=== PATIENT | male | born 1985 | race African-American/Black ===

== ENCOUNTER 2020-02-14 12:43 | Inpatient (IN) ==
[2020-02-14] MEDS ORDERED: TORADOL 30 MG VIAL IVP ONE ×2 (12:48→15:12)
[2020-02-14] MEDS ORDERED: NS 1000 ML 1,000 ML IV ONE (12:48)
[2020-02-14] MEDS ORDERED: ZOFRAN INJ 4 MG VIAL IVP ONE (12:48)
--- NOTE | 2020-02-14 12:53 | DR.ABDMALE ---
HPI Time seen Time Seen by Provider: 02/14/20 12:44 Complaint Chief Complaint Doctors Comments: He has had nausea, vomiting and epigastric pain x > 1 week. He states that he was seen in the ED at a hospital in [facility] last week and he had a CT Scan done. He was informed of sludge in his GB then, prior to release to f/u with a specialist. More recently, he has vomitted x 3 days and epigastric pain started this a.m. Reviewed Nurses Notes Review: Yes Source History provided by:: Pt. Location Location: Diffuse Severity Severity: Moderate Quality Quality: Burning and Colicky Modifying factors Worsening Factors: Nothing Improving Factors: Antacids Associated signs and symptoms Associated Signs and Symptoms: Nausea and Vomiting PMH PMH Past Medical History: Yes Past Surgical History: No Travel Risk Conronavirus risk: Travel to [facility] or contact with high risk person(s).: No Has patient experienced Coronavirus symptoms: No ROS Review of Systems Constitutional: No Symptoms Reported Eyes: No Symptoms Reported ENTM: No Symptoms Reported Respiratoy: No Symptoms Reported Cardiovascular: No Symptoms Reported Gastrointestinal/Abdominal: Abdominal Pain (epigastric), Nausea and Vomiting Genitourinary: No Symptoms Reported Neurological: No Symptoms Reported Musculoskeletal: No Symptoms Reported Integumentary: No Symptoms Reported Hematologic/Lymphatic: No Symptoms Reported Endocrine: No Symptoms Reported Psychiatric: No Symptoms Reported All Other Systems: Reviewed and Negative PE Vital Signs Vital Signs: Temp Pulse Resp BP Pulse Ox 02/14/20 14:01 143/68 02/14/20 13:44 16 02/14/20 13:14 18 02/14/20 12:43 97.2 F L 98 H 20 137/91 97 General Limitations: No Limitations General Appearance: Alert and In No Apparent Distress Head Head Exam: Normal Inspection, Atraumatic and Normocephalic Eyes Eye exam: Normal Appearance and EOMI ENT ENT Exam: Normal Exam, Normal Oropharynx, Normal External Ear Exam and Mucous Membranes Moist Neck Neck Exam: Normal Inspection, Full ROM and Trachea Midline Chest Chest Inspection: Normal Inspection and Symmetric Chest Wall Rise Respiratory Respiratory Exam: Normal Lung Sounds Bilat Cardiovascular Cardiovascular Exam: Regular Rate, Normal Rhythm, Normal Heart Sounds, +S1 and +S2 Abdominal Exam Abdominal Exam: Normal Inspection, Normal Bowel Sounds, Soft and Tenderness (in epigastrium); negative Distention, Guarding, Rebound, Rigidity, Dimnished Bowel Sounds, Hyperactive Bowel Sounds, Hypoactive Bowel Sounds, Organomegaly, Trauma, Incision, Ascites, Mass, Bruit, Pulsatile Mass and Hernia Abdominal Tenderness: Epigastrium Rectal Rectal Exam: Deferred Back Back Exam: Normal Inspection and Full ROM Extremeties Extremities Exam: Normal Inspection and Full ROM Exam: Male: Deferred Neurologic Neurological Exam: Alert and Oriented X3 Psychiatric Psychiatric Exam: Normal Affect and Normal Mood Skin Skin Exam: Dry and Intact COURSE Reevaluation 1st: Improved Consultation Consultation Comments: I spoke with Dr. WAGNER about presentation and findings. He agrees to have the pt. admitted to Obs. status for him Education/Counseling Education/Counseling: Patient, Education and Counseling Educated On: Treatment, Diagnosis, Prognosis and Needs for Follow Up ROR Labs Reviewed Laboratory Results Reviewed?: Yes Result Diagrams: 02/14/20 13:13 02/14/20 13:13 Laboratory: WBC 10.8 X10^3/uL (3.6-10.0) H 02/14/20 13:13 RBC 5.26 X10^6/uL (4.7-6.0) 02/14/20 13:13 Hgb 15.4 g/dL (13.5-18.0) 02/14/20 13:13 Hct 44.8 % (42.0-54.0) 02/14/20 13:13 MCV 85.2 fL (80.0-100.0) 02/14/20 13:13 MCH 29.3 pg (27.0-34.0) 02/14/20 13:13 MCHC 34.4 g/dL (33.0-35.0) 02/14/20 13:13 RDW 14.2 % (11.6-16.5) 02/14/20 13:13 Plt Count 263 X10^3/uL (150.0-450.0) 02/14/20 13:13 MPV 8.1 fL (7.4-11.0) 02/14/20 13:13 Neut % (Auto) 80.7 % (42.0-75.0) H 02/14/20 13:13 Lymph % (Auto) 12.0 % (21.0-51.0) L 02/14/20 13:13 [place] % (Auto) 5.2 % (0.0-13.0) 02/14/20 13:13 Eos % (Auto) 1.4 % (0.9-2.9) 02/14/20 13:13 Baso % (Auto) 0.7 % (0.2-1.0) 02/14/20 13:13 Neut # (Auto) 8.7 x10^3/uL (2.2-4.8) H 02/14/20 13:13 Lymph # (Auto) 1.3 X10^3/uL (1.3-2.9) 02/14/20 13:13 [place] # (Auto) 0.6 x10^3/uL (0.3-0.8) 02/14/20 13:13 Eos # (Auto) 0.2 x10^3/uL (0.0-0.2) 02/14/20 13:13 Baso # (Auto) 0.1 X10^3/uL (0.0-0.1) 02/14/20 13:13 Absolute Nucleated RBC 0.0 /100WBC 02/14/20 13:13 Sodium 135 mmol/L (136-145) L 02/14/20 13:13 Corrected Sodium 136 mmol/L (136-145) 02/14/20 13:13 Potassium 3.8 mmol/L (3.5-5.1) 02/14/20 13:13 Chloride 100 mmol/L (98-107) 02/14/20 13:13 Carbon Dioxide 28.5 mmol/L (21-32) 02/14/20 13:13 BUN 8 mg/dL (7-18) 02/14/20 13:13 Creatinine 1.06 mg/dL (0.70-1.30) 02/14/20 13:13 Est GFR (MDRD) Af Amer > 60 (>60) 02/14/20 13:13 Est GFR (MDRD) Non-Af > 60 (>60) 02/14/20 13:13 Glucose 124 mg/dL (65-99) H 02/14/20 13:13 Calcium 9.4 mg/dL (8.5-10.1) 02/14/20 13:13 Corrected Calcium TNP 02/14/20 13:13 Total Bilirubin 0.70 mg/dL (0.2-1.0) 02/14/20 13:13 AST 17 Units/L (15-37) 02/14/20 13:13 ALT 38 Units/L (12-78) 02/14/20 13:13 Alkaline Phosphatase 48 Units/L (46-116) 02/14/20 13:13 Total Protein 7.8 g/dL (6.4-8.2) 02/14/20 13:13 Albumin 3.8 g/dL (3.4-5.0) 02/14/20 13:13 Globulin 4.0 g/dL (2.5-4.5) 02/14/20 13:13 Albumin/Globulin Ratio 1.0 Ratio (1.1-2.1) L 02/14/20 13:13 Amylase 99 Units/L (25-115) 02/14/20 13:13 Lipase 60 Units/L (73-393) L 02/14/20 13:13 Opioid Opioid Risk Tool Total: 0 Total Score Risk Category: Low Risk Copyright: Guerrero BARRIOS predicting aberrant behaviors Diagnosis Discharge Problem: Abdominal pain Qualifiers: Abdominal location: epigastric Qualified Code(s): R10.13 - Epigastric pain ADDITIONAL NOTES Additional Notes Additional Notes: A copy of the abd. U/S from [facility]. was faxed over and reviewed. It was read as showing fally infiltration of the liver, GB sludge with no acute cholecystitis.
[2020-02-14 13:02] VITALS: BMI 34.9
[2020-02-14] MEDS ORDERED: ZOFRAN INJ 4 MG VIAL ONE (13:10)
[2020-02-14] MEDS ORDERED: TORADOL 30 MG VIAL ONE (13:10)
[2020-02-14] MEDS ORDERED: NS 1000 ML 1,000 ML ONE (13:10)
[2020-02-14 13:23] LABS: BASOPHILS # (AUTO) 0.1 X10^3/uL (0.0-0.1); BASOPHILS % (AUTO) 0.7 % (0.2-1.0); EOSINOPHILS # (AUTO) 0.2 x10^3/uL (0.0-0.2); EOSINOPHILS % (AUTO) 1.4 % (0.9-2.9); HEMATOCRIT 44.8 % (42.0-54.0); HEMOGLOBIN 15.4 g/dL (13.5-18.0); LYMPHOCYTES # (AUTO) 1.3 X10^3/uL (1.3-2.9); MEAN CORPUSCULAR HEMOGLOBIN 29.3 pg (27.0-34.0); MEAN CORPUSCULAR HGB CONC 34.4 g/dL (33.0-35.0); MEAN CORPUSCULAR VOLUME 85.2 fL (80.0-100.0); MEAN PLATELET VOLUME 8.1 fL (7.4-11.0); MONOCYTES # (AUTO) 0.6 x10^3/uL (0.3-0.8); MONOCYTES % (AUTO) 5.2 % (0.0-13.0); NEUTROPHILS # (AUTO) 8.7 x10^3/uL (2.2-4.8); NEUTROPHILS % (AUTO) 80.7 % (42.0-75.0); PLATELET COUNT 263 X10^3/uL (150.0-450.0); RED BLOOD COUNT 5.26 X10^6/uL (4.7-6.0); RED CELL DISTRIBUTION WIDTH 14.2 % (11.6-16.5); WHITE BLOOD COUNT 10.8 X10^3/uL (3.6-10.0)
[2020-02-14 13:33] LABS: ALANINE AMINOTRANSFERASE 38 Units/L (12-78); ALBUMIN 3.8 g/dL (3.4-5.0); ALKALINE PHOSPHATASE 48 Units/L (46-116); AMYLASE 99 Units/L (25-115); ASPARTATE AMINO TRANSFERASE 17 Units/L (15-37); BLOOD UREA NITROGEN 8 mg/dL (7-18); CALCIUM 9.4 mg/dL (8.5-10.1); CARBON DIOXIDE 28.5 mmol/L (21-32); CHLORIDE 100 mmol/L (98-107); COR NA(FOR HYPERGLY) 136 mmol/L (136-145); CREATININE 1.06 mg/dL (0.70-1.30); LIPASE 60 Units/L (73-393); SODIUM 135 mmol/L (136-145); TOTAL PROTEIN 7.8 g/dL (6.4-8.2); eGFR NON BLACK RACES > 60 (>60)
[2020-02-14] MEDS ORDERED: DILAUDID INJ IVP ONE (13:36)
[2020-02-14] MEDS ORDERED: DILAUDID INJ ONE (13:43)
[2020-02-14] MEDS: D5 1/2 NS 1000 ML 1,000 ML IV SCH ×2 (16:30→23:41)
[2020-02-14] MEDS: DILAUDID INJ IVP PRN ×2 (18:10→22:30)
[2020-02-14] MEDS: ZOFRAN INJ 4 MG VIAL IVP PRN (18:13)
[2020-02-14] MEDS: PROTONIX INJ 40 MG VIAL IVP SCH (21:00)
--- NOTE | 2020-02-14 22:14 | DR.ABDMALE ---
HPI Time seen Time Seen by Provider: 02/14/20 12:44 PCP Primary Care Physician: ROMAIN Complaint Chief Complaint:: PT. C/O EPIGASTRIC PAIN, N/V/D. ONSET TODAY. PT. WAS SEEN AT [facility], LAST WEEK AND PT. STATES THEY TOLD H IM HE HAD A BAD GALLBLADDER. PT. ACTIVELY VOMITING AT TIME OF TRIAGE, UNABLE TO LIE STILL ON STRETCHER. Source History provided by:: Pt. Mode of arrival Mode of Arrival: Wheelchair Timing Onset of Chief Complaint: 02/14/20 PMH PMH Past Medical History: Yes Past Medical History: Hypertension Past Surgical History: No Surgical History: Appendectomy and Tonsillectomy Family History History of Family Medical Conditions: No Social History Does patient currently use any type of tobacco product: Yes Have you used tobacco products in the last 12 months: Yes Type of Tobacco Use: Cigarettes Does any household member use tobacco: No Alcohol Use: Occasionally Do you use any recreational Drugs:: No Travel Risk Conronavirus risk: Travel outside the country or contact with high risk person(s).: No Has patient experienced Coronavirus symptoms: No Infectious screening In the last 2 months have you had wt loss of >10#?: NO Have you had fever, night sweats or hemotysis?: No Have you traveled outside the country in the last 6 months?: No Isolation: Standard PE Vital Signs Vital Signs: Temp Pulse Pulse Resp BP BP BP 02/15/20 08:00 98.6 F 80 18 141/82 02/15/20 07:14 20 02/15/20 06:44 20 02/15/20 04:00 98.4 F 87 18 191/92 02/15/20 03:29 18 02/15/20 02:59 18 02/15/20 00:00 98.1 F 64 18 131/83 02/14/20 23:00 20 02/14/20 22:30 20 02/14/20 20:00 98.5 F 57 L 18 152/77 02/14/20 19:00 20 02/14/20 18:10 20 02/14/20 15:40 98.1 F 88 20 146/89 02/14/20 15:37 146/89 02/14/20 15:30 185/107 02/14/20 15:05 127/81 02/14/20 14:31 127/81 03/18/20 14:01 143/68 02/14/20 13:44 16 02/14/20 13:14 18 02/14/20 12:43 97.2 F L 98 H 20 137/91 Pulse Ox 02/15/20 08:00 95 02/15/20 07:14 02/15/20 06:44 02/15/20 04:00 100 02/15/20 03:29 02/15/20 02:59 02/15/20 00:00 97 02/14/20 23:00 02/14/20 22:30 02/14/20 20:00 97 02/14/20 19:00 02/14/20 18:10 02/14/20 15:40 99 02/14/20 15:37 99 02/14/20 15:30 02/14/20 15:05 02/14/20 14:31 02/14/20 14:01 02/14/20 13:44 02/14/20 13:14 02/14/20 12:43 97 ROR Labs Reviewed Result Diagrams: 02/17/20 04:44 02/17/20 04:44 Laboratory: WBC 10.3 X10^3/uL (3.6-10.0) H 02/15/20 04:27 RBC 5.07 X10^6/uL (4.7-6.0) 02/15/20 04:27 Hgb 14.9 g/dL (13.5-18.0) 02/15/20 04:27 Hct 43.7 % (42.0-54.0) 02/15/20 04:27 MCV 86.1 fL (80.0-100.0) 02/15/20 04:27 MCH 29.3 pg (27.0-34.0) 02/15/20 04:27 MCHC 34.0 g/dL (33.0-35.0) 02/15/20 04:27 RDW 14.2 % (11.6-16.5) 02/15/20 04:27 Plt Count 163 X10^3/uL (150.0-450.0) 02/15/20 04:27 MPV 8.6 fL (7.4-11.0) 02/15/20 04:27 Neut % (Auto) 75.0 % (42.0-75.0) 02/15/20 04:27 Lymph % (Auto) 13.7 % (21.0-51.0) L 02/15/20 04:27 [place] % (Auto) 8.7 % (0.0-13.0) 02/15/20 04:27 Eos % (Auto) 2.0 % (0.9-2.9) 02/15/20 04:27 Baso % (Auto) 0.6 % (0.2-1.0) 02/15/20 04:27 Neut # (Auto) 7.7 x10^3/uL (2.2-4.8) H 02/15/20 04:27 Lymph # (Auto) 1.4 X10^3/uL (1.3-2.9) 02/15/20 04:27 [place] # (Auto) 0.9 x10^3/uL (0.3-0.8) H 02/15/20 04:27 Eos # (Auto) 0.2 x10^3/uL (0.0-0.2) 02/15/20 04:27 Baso # (Auto) 0.1 X10^3/uL (0.0-0.1) 02/15/20 04:27 Absolute Nucleated RBC 0.1 /100WBC 02/15/20 04:27 Sodium 139 mmol/L (136-145) 02/15/20 04:27 Corrected Sodium TNP 02/15/20 04:27 Potassium 4.0 mmol/L (3.5-5.1) 02/15/20 04:27 Chloride 103 mmol/L (98-107) 02/15/20 04:27 Carbon Dioxide 28.3 mmol/L (21-32) 02/15/20 04:27 BUN 10 mg/dL (7-18) 02/15/20 04:27 Creatinine 1.29 mg/dL (0.70-1.30) 02/15/20 04:27 Est GFR (MDRD) Af Amer > 60 (>60) 02/15/20 04:27 Est GFR (MDRD) Non-Af > 60 (>60) 02/15/20 04:27 Glucose 91 mg/dL (65-99) 02/15/20 04:27 Calcium 8.5 mg/dL (8.5-10.1) 02/15/20 04:27 Corrected Calcium 9.2 mg/dL (8.5-10.1) 02/15/20 04:27 Total Bilirubin 0.90 mg/dL (0.2-1.0) 02/15/20 04:27 AST 16 Units/L (15-37) 02/15/20 04:27 ALT 29 Units/L (12-78) 02/15/20 04:27 Alkaline Phosphatase 44 Units/L (46-116) L 02/15/20 04:27 Total Protein 6.8 g/dL (6.4-8.2) 02/15/20 04:27 Albumin 3.1 g/dL (3.4-5.0) L 02/15/20 04:27 Globulin 3.7 g/dL (2.5-4.5) 02/15/20 04:27 Albumin/Globulin Ratio 0.8 Ratio (1.1-2.1) L 02/15/20 04:27 Amylase 99 Units/L (25-115) 02/14/20 13:13 Lipase 60 Units/L (73-393) L 02/14/20 13:13 Urine Opiates Screen Negative (NEG=<300) 02/14/20 17:55 Urine Methadone Screen Negative (NEG=<300) 02/14/20 17:55 Ur Barbiturates Screen Negative (NEG=<200) 02/14/20 17:55 Ur Phencyclidine Scrn Negative (NEG=<25) 02/14/20 17:55 Ur Amphetamines Screen Negative (NEG=<1000) 02/14/20 17:55 U Benzodiazepines Scrn Negative (NEG=<200) 02/14/20 17:55 Urine Cocaine Screen Negative (NEG=<300) 02/14/20 17:55 U Marijuana (THC) Screen Positive (NEG=<50) A 02/14/20 17:55 Opioid Opioid Risk Tool Age (Rodríguez box if 16-45): Yes History of Preadolescent Sexual Abuse: No Total: 1 Total Score Risk Category: Low Risk Copyright: Guerrero BARRIOS predicting aberrant behaviors Diagnosis Discharge Problem: Abdominal pain Qualifiers: Abdominal location: epigastric Qualified Code(s): R10.13 - Epigastric pain Instructions Instructions: Laparoscopic Cholecystectomy, Care After Abdominal Pain, Adult, [id number] Stitches, Vannessa, or Adhesive Wound Closure, [id number] Incision Care, Adult
[2020-02-15] MEDS: ZOFRAN INJ 4 MG VIAL IVP PRN ×4 (00:45→20:15)
[2020-02-15] MEDS: DILAUDID INJ IVP PRN ×4 (02:59→20:15)
[2020-02-15 05:21] LABS: BASOPHILS # (AUTO) 0.1 X10^3/uL (0.0-0.1); BASOPHILS % (AUTO) 0.6 % (0.2-1.0); EOSINOPHILS # (AUTO) 0.2 x10^3/uL (0.0-0.2); HEMATOCRIT 43.7 % (42.0-54.0); HEMOGLOBIN 14.9 g/dL (13.5-18.0); LYMPHOCYTES # (AUTO) 1.4 X10^3/uL (1.3-2.9); LYMPHOCYTES % (AUTO) 13.7 % (21.0-51.0); MEAN CORPUSCULAR HEMOGLOBIN 29.3 pg (27.0-34.0); MEAN CORPUSCULAR VOLUME 86.1 fL (80.0-100.0); MEAN PLATELET VOLUME 8.6 fL (7.4-11.0); MONOCYTES # (AUTO) 0.9 x10^3/uL (0.3-0.8); MONOCYTES % (AUTO) 8.7 % (0.0-13.0); NEUTROPHILS # (AUTO) 7.7 x10^3/uL (2.2-4.8); PLATELET COUNT 163 X10^3/uL (150.0-450.0); RED BLOOD COUNT 5.07 X10^6/uL (4.7-6.0); RED CELL DISTRIBUTION WIDTH 14.2 % (11.6-16.5); WHITE BLOOD COUNT 10.3 X10^3/uL (3.6-10.0)
[2020-02-15 05:29] LABS: ALANINE AMINOTRANSFERASE 29 Units/L (12-78); ALBUMIN 3.1 g/dL (3.4-5.0); ALKALINE PHOSPHATASE 44 Units/L (46-116); ASPARTATE AMINO TRANSFERASE 16 Units/L (15-37); BLOOD UREA NITROGEN 10 mg/dL (7-18); CALCIUM 8.5 mg/dL (8.5-10.1); CARBON DIOXIDE 28.3 mmol/L (21-32); CHLORIDE 103 mmol/L (98-107); COR CA(FOR HYPOALB) 9.2 mg/dL (8.5-10.1); CREATININE 1.29 mg/dL (0.70-1.30); SODIUM 139 mmol/L (136-145); TOTAL PROTEIN 6.8 g/dL (6.4-8.2); eGFR NON BLACK RACES > 60 (>60)
[2020-02-15] MEDS: PROTONIX INJ 40 MG VIAL IVP SCH ×2 (09:02→20:16)
[2020-02-15] MEDS: D5 1/2 NS 1000 ML 1,000 ML IV SCH ×2 (09:02→22:00)
[2020-02-15] MEDS ORDERED: MORPHINE SULFATE INJ 2 MG INJ IVP ONE (13:43)
--- NOTE | 2020-02-15 16:54 | NM ---
HISTORY:CholecystitisStudy: Nuclear medicine HIDA scan with ejection fractionComparison:NoneTechnique: Multiple scintigraphic images of the abdomen were obtained the intravenous administration of 5.4 mCi of technetium labeled Choletec. 0.4 milligrams of morphine was also given due to nonvisualization of the gallbladder.Estimated gallbladder ejection fraction was calculated based on the physiologic response to drinking 8 oz of Ensure.Findings:There is homogeneous tracer uptake within the liver with normal biliary to bowel transit time. The gallbladder was not visualized at 90 minutes. 0.4 milligrams of morphine was administered due to nonvisualization of the gallbladder and reimaging was performed at 30 minutes, now showing mild tracer uptake in the gallbladder. After drinking Ensure, the gallbladder ejection fraction was calculated to be 62 percent.IMPRESSION:1. Delayed filling of the gallbladder, only visualized at 2 hours after administration of morphine. Cannot completely exclude acute or chronic cholecystitis. Once filled, the gallbladder ejection fraction was normal.Electronically signed by: FILEMON CHAMBERS (Feb 15, 2020 16:52:56)
--- NOTE | 2020-02-15 17:03 | DR.PROGNOT ---
Hospital Progress Notes - Progress Note for Day of: Progress Note Date: 02/15/20 - Chief Complaint Chief Complaint: still having epigastric and RUQ pain with nausea .. no vomiting . biliary scan did not visualize the GB for 90 mnts . GB US showed sludge in the GB . - Past Medical Family Social History Past Med/Fam/Surg Hx: No changes since H&P Allergies: Allergies azithromycin [From Zithromax] Allergy (Verified 02/14/20 12:59) erythromycin base [From E-Mycin] Allergy (Verified 02/14/20 12:59) - Review Of Systems ROS: No change since H&P - Vital Signs Vital Signs: Temperature 98.6 F Pulse Rate [Right Brachial] 78 Pulse Rate 98 Respiratory Rate 20 Blood Pressure [Right Arm] 130/73 Blood Pressure [Left Arm] 127/81 Blood Pressure 146/89 O2 Sat by Pulse Oximetry 94 - Physical Exam Oriented: Normal Eyes: Normal Ear: Normal Nose: Normal Throat: Normal Respiratory: Normal Cardiovascular: Normal GI:Auscultation: Normal GI:Palpation: Normal GI: Tenderness: RUQ, Epigastric (soft abdomen with RUQ tenderness and positive Brantley's sign ) Skin: Normal Musculoskeletal: Normal Psychiatric: Normal Speech Pattern: Clear, Appropriate - Laboratory and Diagnostics Result Diagrams: 02/15/20 04:27 02/15/20 04:27 Labs: Laboratory WBC 10.3 X10^3/uL (3.6-10.0) H 02/15/20 04:27 RBC 5.07 X10^6/uL (4.7-6.0) 02/15/20 04:27 Hgb 14.9 g/dL (13.5-18.0) 02/15/20 04:27 Hct 43.7 % (42.0-54.0) 02/15/20 04:27 MCV 86.1 fL (80.0-100.0) 02/15/20 04:27 MCH 29.3 pg (27.0-34.0) 02/15/20 04:27 MCHC 34.0 g/dL (33.0-35.0) 02/15/20 04:27 RDW 14.2 % (11.6-16.5) 02/15/20 04:27 Plt Count 163 X10^3/uL (150.0-450.0) 02/15/20 04:27 MPV 8.6 fL (7.4-11.0) 02/15/20 04:27 Neut % (Auto) 75.0 % (42.0-75.0) 02/15/20 04:27 Lymph % (Auto) 13.7 % (21.0-51.0) L 02/15/20 04:27 [place] % (Auto) 8.7 % (0.0-13.0) 02/15/20 04:27 Eos % (Auto) 2.0 % (0.9-2.9) 02/15/20 04:27 Baso % (Auto) 0.6 % (0.2-1.0) 02/15/20 04:27 Neut # (Auto) 7.7 x10^3/uL (2.2-4.8) H 02/15/20 04:27 Lymph # (Auto) 1.4 X10^3/uL (1.3-2.9) 02/15/20 04:27 [place] # (Auto) 0.9 x10^3/uL (0.3-0.8) H 02/15/20 04:27 Eos # (Auto) 0.2 x10^3/uL (0.0-0.2) 02/15/20 04:27 Baso # (Auto) 0.1 X10^3/uL (0.0-0.1) 02/15/20 04:27 Absolute Nucleated RBC 0.1 /100WBC 02/15/20 04:27 Sodium 139 mmol/L (136-145) 02/15/20 04:27 Corrected Sodium TNP 02/15/20 04:27 Potassium 4.0 mmol/L (3.5-5.1) 02/15/20 04:27 Chloride 103 mmol/L (98-107) 02/15/20 04:27 Carbon Dioxide 28.3 mmol/L (21-32) 02/15/20 04:27 BUN 10 mg/dL (7-18) 02/15/20 04:27 Creatinine 1.29 mg/dL (0.70-1.30) 02/15/20 04:27 Est GFR (MDRD) Af Amer > 60 (>60) 02/15/20 04:27 Est GFR (MDRD) Non-Af > 60 (>60) 02/15/20 04:27 Glucose 91 mg/dL (65-99) 02/15/20 04:27 Calcium 8.5 mg/dL (8.5-10.1) 02/15/20 04:27 Corrected Calcium 9.2 mg/dL (8.5-10.1) 02/15/20 04:27 Total Bilirubin 0.90 mg/dL (0.2-1.0) 02/15/20 04:27 AST 16 Units/L (15-37) 02/15/20 04:27 ALT 29 Units/L (12-78) 02/15/20 04:27 Alkaline Phosphatase 44 Units/L (46-116) L 02/15/20 04:27 Total Protein 6.8 g/dL (6.4-8.2) 02/15/20 04:27 Albumin 3.1 g/dL (3.4-5.0) L 02/15/20 04:27 Globulin 3.7 g/dL (2.5-4.5) 02/15/20 04:27 Albumin/Globulin Ratio 0.8 Ratio (1.1-2.1) L 02/15/20 04:27 Amylase 99 Units/L (25-115) 02/14/20 13:13 Lipase 60 Units/L (73-393) L 02/14/20 13:13 Urine Opiates Screen Negative (NEG=<300) 02/14/20 17:55 Urine Methadone Screen Negative (NEG=<300) 02/14/20 17:55 Ur Barbiturates Screen Negative (NEG=<200) 02/14/20 17:55 Ur Phencyclidine Scrn Negative (NEG=<25) 02/14/20 17:55 Ur Amphetamines Screen Negative (NEG=<1000) 02/14/20 17:55 U Benzodiazepines Scrn Negative (NEG=<200) 02/14/20 17:55 Urine Cocaine Screen Negative (NEG=<300) 02/14/20 17:55 U Marijuana (THC) Screen Positive (NEG=<50) A 02/14/20 17:55 - Assessment and Plan 1: acute cholecystitis . to start on full liquid diet this pm . for lap aidee in am - Problem Patient Problems: Patient Problems Abdominal pain (Acute) R10.9
[2020-02-16] MEDS: DILAUDID INJ IVP PRN ×9 (00:08→23:22)
[2020-02-16] MEDS: ZOFRAN INJ 4 MG VIAL IVP PRN (00:08)
[2020-02-16] MEDS ORDERED: NS 1000 ML 1,000 ML ONE (11:27)
[2020-02-16] MEDS ORDERED: ANCEF 1 GRAM IV PREMIX* 1 G/50 ML BAG IV ONE ×2 (11:28)
[2020-02-16] MEDS ORDERED: BACTROBAN TOPICAL OINT ONE (11:30)
[2020-02-16] MEDS ORDERED: FENTANYL INJ 250 mcg ONE (11:36)
[2020-02-16] MEDS ORDERED: BENADRYL INJ 50 MG VIAL IVP PRN (12:44)
[2020-02-16] MEDS ORDERED: ZOFRAN INJ 4 MG VIAL IVP PRN (12:44)
[2020-02-16] MEDS ORDERED: REGLAN INJ 10 MG VIAL IVP PRN (12:44)
[2020-02-16] MEDS ORDERED: PHENERGAN INJ 25 MG IM PRN (12:44)
[2020-02-16] MEDS ORDERED: DILAUDID INJ ONE (12:45)
[2020-02-16] MEDS ORDERED: NS IRRIGATION 3000 ML ONE (13:59)
--- NOTE | 2020-02-16 14:19 | OR.IMMED ---
Immediate Post-Op Note - Immediate Post-Op Note Pre-Op Diagnosis: cholecystitis Post-Op Diagnosis: cholecysitis with distended GB . normal liver ,stomach , cecum nd SB Procedure: diagnostic laparoscopy , lap aidee . Surgeon/Consultant Teacher: Juli Specimens Removed: GB Estimated Blood Loss: 10 cc Drains: NONE Complications: none Condition: Stable (on clear liquid . ,low fat diet in am)
[2020-02-16] MEDS ORDERED: SUPRANE ONE (15:15)
[2020-02-16] MEDS ORDERED: NEOSTIGMINE INJ ONE (15:15)
[2020-02-16] MEDS ORDERED: DIPRIVAN VIAL ONE (15:15)
[2020-02-16] MEDS ORDERED: VERSED ONE (15:15)
[2020-02-16] MEDS ORDERED: ZOFRAN INJ 4 MG VIAL ONE (15:15)
[2020-02-16] MEDS ORDERED: NORCURON INJ 10 MG VIAL ONE (15:15)
[2020-02-16] MEDS ORDERED: TORADOL 30 MG VIAL ONE (15:15)
[2020-02-16] MEDS ORDERED: QUELICIN (OR ANECTINE) ONE (15:15)
[2020-02-16] MEDS ORDERED: ROBINUL ONE (15:15)
[2020-02-16] MEDS: PROTONIX INJ 40 MG VIAL IVP SCH ×2 (16:11→20:35)
[2020-02-16] MEDS: D5 1/2 NS 1000 ML 1,000 ML IV SCH ×2 (18:09→23:22)
[2020-02-17] MEDS ORDERED: NORCO 5/325 MG TAB PO ONE (03:57)
[2020-02-17] MEDS ORDERED: NORCO 5/325 MG TAB ONE (03:59)
[2020-02-17] MEDS: DILAUDID INJ IVP PRN ×3 (05:13→13:11)
[2020-02-17 05:47] LABS: BASOPHILS % (AUTO) 0.4 % (0.2-1.0); EOSINOPHILS # (AUTO) 0.2 x10^3/uL (0.0-0.2); EOSINOPHILS % (AUTO) 2.4 % (0.9-2.9); HEMATOCRIT 39.8 % (42.0-54.0); HEMOGLOBIN 13.5 g/dL (13.5-18.0); LYMPHOCYTES # (AUTO) 1.7 X10^3/uL (1.3-2.9); LYMPHOCYTES % (AUTO) 20.5 % (21.0-51.0); MEAN CORPUSCULAR HEMOGLOBIN 29.2 pg (27.0-34.0); MEAN CORPUSCULAR VOLUME 85.8 fL (80.0-100.0); MEAN PLATELET VOLUME 8.4 fL (7.4-11.0); MONOCYTES # (AUTO) 0.6 x10^3/uL (0.3-0.8); MONOCYTES % (AUTO) 7.3 % (0.0-13.0); NEUTROPHILS # (AUTO) 5.6 x10^3/uL (2.2-4.8); NEUTROPHILS % (AUTO) 69.4 % (42.0-75.0); PLATELET COUNT 198 X10^3/uL (150.0-450.0); RED BLOOD COUNT 4.64 X10^6/uL (4.7-6.0); WHITE BLOOD COUNT 8.1 X10^3/uL (3.6-10.0)
[2020-02-17 06:02] LABS: ALANINE AMINOTRANSFERASE 28 Units/L (12-78); ALBUMIN 2.9 g/dL (3.4-5.0); ALKALINE PHOSPHATASE 42 Units/L (46-116); ASPARTATE AMINO TRANSFERASE 14 Units/L (15-37); BLOOD UREA NITROGEN 5 mg/dL (7-18); CALCIUM 8.2 mg/dL (8.5-10.1); CARBON DIOXIDE 29.8 mmol/L (21-32); CHLORIDE 103 mmol/L (98-107); COR CA(FOR HYPOALB) 9.1 mg/dL (8.5-10.1); CREATININE 1.16 mg/dL (0.70-1.30); SODIUM 137 mmol/L (136-145); TOTAL PROTEIN 6.3 g/dL (6.4-8.2); eGFR NON BLACK RACES > 60 (>60)
[2020-02-17] MEDS: PROTONIX INJ 40 MG VIAL IVP SCH (08:42)
[2020-02-17] MEDS: D5 1/2 NS 1000 ML 1,000 ML IV SCH (11:15)
[2020-02-17 11:33] VITALS: BP 138/88
[2020-02-17] MEDS: ZOFRAN INJ 4 MG VIAL IVP PRN (13:11)
[2020-02-19] MEDS ORDERED: DIPRIVAN VIAL 20 ML ONE (13:50)
[2020-02-19] MEDS ORDERED: D5 1/2 NS 1000 ML 1,000 ML IV ONE (15:02)
[2020-02-19] MEDS ORDERED: CARAFATE ONE (15:38)
== END 2020-02-17 14:30 | DRG 419 ==
LOC: ER 12:43 → MED/SURG 12:43 → UNDODISOB 02-17 14:30
PROVIDERS: ADMIT Surgery; ATTEND Surgery
DX: K81.1 Chronic cholecystitis; I10 Essential (primary) hypertension; R11.2 Nausea with vomiting, unspecified; K81.0 Acute cholecystitis; R10.13 Epigastric pain
CPT/HCPCS: 36415; 78227; 80053; 80307; 82150; 83690; 85025; 96360; 96361; 96365; 96374; 96375; 99284; A4216; A4222; A9537; C9113; G0378; J0330; J0690; J1170; J1885; J2250; J2270; J2405; J2704; J2710; J3010; J3490; J7030; S5010

== ENCOUNTER 2020-02-19 08:20 | Observation (INO) ==
--- NOTE | 2020-02-19 08:40 | DR.ABDMALE ---
HPI - Time seen Time seen: 08:45 - Complaint Chief Complaint Doctors Comments: patient complaint of vomiting and epigastric pain. Seen in ER last night with unremarkable CT abdo/pelvis and labs. Patient had cholycystectomy 1 week ago. - Reviewed Nurses Notes Review: Yes - Source History provided by:: Pt. - Mode of arrival Mode of Arrival: Ambulatory - Timing Came on: Gradually - Duration Duration: Intermittent How lon Duration: Days - Location Location: Epigastric - Severity Severity: Moderate - Quality Quality: Aching - Context Onset: Gradually History of: Abdominal surgery (cholycystectomy 1 week ago) - Modifying factors Worsening Factors: Food - Associated signs and symptoms Associated Signs and Symptoms: Nausea, Vomiting PMH - PMH Past Medical History: Hypertension Past Surgical History: Yes Surgical History: Appendectomy, Cholecystectomy, Tonsillectomy - Family History Family Medical History: Hypertension - Social History Do you use any recreational Drugs:: Yes Lives With: Other (prison) Lives Where: prison - Travel Risk Coronavirus risk:travel/contact w/high risk person: No Has patient experienced Coronavirus symptoms: No - infectious screening Isolation: Standard ROS - Review of Systems Constitutional: No Symptoms Reported Eyes: No Symptoms Reported ENTM: No Symptoms Reported Respiratoy: No Symptoms Reported Cardiovascular: No Symptoms Reported Gastrointestinal/Abdominal: Abdominal Pain (epigastric), Nausea, Vomiting Genitourinary: No Symptoms Reported Neurological: No Symptoms Reported Musculoskeletal: No Symptoms Reported Integumentary: No Symptoms Reported Hematologic/Lymphatic: No Symptoms Reported Endocrine: No Symptoms Reported Psychiatric: No Symptoms Reported All Other Systems: Reviewed and Negative PE - Vital Signs Vital Signs: Temp Pulse Resp BP BP Pulse Ox 02/19/20 13:08 16 02/19/20 08:42 97.8 F 102 H 22 156/104 98 02/19/20 04:06 132/76 Course - Treatment Treatment: DR. Poole scoped patient and was admitted for observation - Consultation Called: 12:24 Call Returned: 12:24 Consultation Comments: case discussed with DR. Poole, requested NPO and he will scope patient. ROR - Labs Reviewed Result Diagrams: 02/19/20 09:28 02/19/20 09:28 - Labs Reviewed Laboratory: WBC 9.6 X10^3/uL (3.6-10.0) 02/19/20 09:28 RBC 5.08 X10^6/uL (4.7-6.0) 02/19/20 09: Hgb 15.1 g/dL (13.5-18.0) 02/19/20: Hct 43.0 % (42.0-54.0) 02/19/20: MCV 84.7 fL (80.0-100.0) 02/19/20: MCH 29.6 pg (27.0-34.0) 02/19/20 MCHC 35.0 g/dL (33.0-35.0) 02/19/20: RDW 13.9 % (11.6-16.5) 02/19/20: Plt Count 186 X10^3/uL (150.0-450.0) 02/19/20: MPV 9.1 fL (7.4-11.0) 02/19/20: Neut % (Auto) 79.9 % (42.0-75.0) H 02/19/20: Lymph % (Auto) 13.4 % (21.0-51.0) L 02/19/20: [place] % (Auto) 5.7 % (0.0-13.0) 02/19/20 Eos % (Auto) 0.4 % (0.9-2.9) L 02/19/20: Baso % (Auto) 0.6 % (0.2-1.0) 02/19/20: Neut # (Auto) 7.7 x10^3/uL (2.2-4.8) H 02/19/20: Lymph # (Auto) 1.3 X10^3/uL (1.3-2.9) 02/19/20: [place] # (Auto) 0.5 x10^3/uL (0.3-0.8) 02/19/20: Eos # (Auto) 0.0 x10^3/uL (0.0-0.2) 02/19/20: Baso # (Auto) 0.1 X10^3/uL (0.0-0.1) 03/23/20 09:28 Absolute Nucleated RBC 0.1 /100WBC 02/19/20 09:28 Sodium 136 mmol/L (136-145) 02/19/20 09:28 Corrected Sodium TNP 02/19/20 09:28 Potassium 4.0 mmol/L (3.5-5.1) 02/19/20 09:28 Chloride 100 mmol/L (98-107) 02/19/20 09:28 Carbon Dioxide 28.2 mmol/L (21-32) 02/19/20 09:28 BUN 7 mg/dL (7-18) 02/19/20 09:28 Creatinine 1.10 mg/dL (0.70-1.30) 02/19/20 09:28 Est GFR (MDRD) Af Amer > 60 (>60) 02/19/20 09:28 Est GFR (MDRD) Non-Af > 60 (>60) 02/19/20 09:28 Glucose 100 mg/dL (65-99) H 02/19/20 09:28 Calcium 9.2 mg/dL (8.5-10.1) 02/19/20 09:28 Corrected Calcium TNP 02/19/20 09:28 Total Bilirubin 1.20 mg/dL (0.2-1.0) H 02/19/20 09:28 AST 14 Units/L (15-37) L 02/19/20 09:28 ALT 28 Units/L (12-78) 02/19/20 09:28 Alkaline Phosphatase 53 Units/L (46-116) 02/19/20 09:28 Total Protein 7.6 g/dL (6.4-8.2) 02/19/20 09:28 Albumin 3.7 g/dL (3.4-5.0) 02/19/20 09:28 Globulin 3.9 g/dL (2.5-4.5) 02/19/20 09:28 Albumin/Globulin Ratio 0.9 Ratio (1.1-2.1) L 02/19/20 09:28 Tissue Pathology To follow 02/19/20 14:02 Opioid - Opioid Risk Tool Age (Rodríguez box if 16-45): Yes History of Preadolescent Sexual Abuse: No Total: 1 Total Score Risk Category: Low Risk - Diagnosis Discharge Problem: Intractable vomiting with nausea - Discharge Plan Disposition: ADMITTED INPATIENT Condition: Stable
[2020-02-19 08:49] VITALS: BMI 34.9
[2020-02-19] MEDS ORDERED: NS 500 ML IV 1,000 ML IV ONE (09:02)
[2020-02-19] MEDS ORDERED: ZOFRAN INJ 4 MG VIAL IVP ONE (09:02)
[2020-02-19] MEDS ORDERED: PROTONIX INJ 40 MG VIAL IVP ONE (09:03)
[2020-02-19] MEDS ORDERED: ZOFRAN INJ 4 MG VIAL ONE (09:04)
[2020-02-19] MEDS ORDERED: NS 500 ML IV 500 ML IV ONE ×2 (09:06→13:40)
[2020-02-19] MEDS ORDERED: PROTONIX INJ 40 MG VIAL ONE (09:28)
[2020-02-19 09:47] LABS: ALANINE AMINOTRANSFERASE 28 Units/L (12-78); ALBUMIN 3.7 g/dL (3.4-5.0); ALKALINE PHOSPHATASE 53 Units/L (46-116); ASPARTATE AMINO TRANSFERASE 14 Units/L (15-37); BLOOD UREA NITROGEN 7 mg/dL (7-18); CALCIUM 9.2 mg/dL (8.5-10.1); CARBON DIOXIDE 28.2 mmol/L (21-32); CHLORIDE 100 mmol/L (98-107); SODIUM 136 mmol/L (136-145); TOTAL PROTEIN 7.6 g/dL (6.4-8.2); eGFR NON BLACK RACES > 60 (>60)
[2020-02-19] MEDS ORDERED: PHENERGAN INJ 25 MG IM ONE ×2 (09:59→10:12)
[2020-02-19 10:02] LABS: BASOPHILS # (AUTO) 0.1 X10^3/uL (0.0-0.1); BASOPHILS % (AUTO) 0.6 % (0.2-1.0); EOSINOPHILS % (AUTO) 0.4 % (0.9-2.9); HEMOGLOBIN 15.1 g/dL (13.5-18.0); LYMPHOCYTES # (AUTO) 1.3 X10^3/uL (1.3-2.9); LYMPHOCYTES % (AUTO) 13.4 % (21.0-51.0); MEAN CORPUSCULAR HEMOGLOBIN 29.6 pg (27.0-34.0); MEAN CORPUSCULAR VOLUME 84.7 fL (80.0-100.0); MEAN PLATELET VOLUME 9.1 fL (7.4-11.0); MONOCYTES # (AUTO) 0.5 x10^3/uL (0.3-0.8); MONOCYTES % (AUTO) 5.7 % (0.0-13.0); NEUTROPHILS # (AUTO) 7.7 x10^3/uL (2.2-4.8); NEUTROPHILS % (AUTO) 79.9 % (42.0-75.0); PLATELET COUNT 186 X10^3/uL (150.0-450.0); RED BLOOD COUNT 5.08 X10^6/uL (4.7-6.0); RED CELL DISTRIBUTION WIDTH 13.9 % (11.6-16.5); WHITE BLOOD COUNT 9.6 X10^3/uL (3.6-10.0)
[2020-02-19] MEDS ORDERED: REGLAN INJ 10 MG VIAL IVP ONE (10:28)
[2020-02-19] MEDS ORDERED: REGLAN INJ 10 MG VIAL ONE (10:45)
[2020-02-19] MEDS ORDERED: DILAUDID INJ IVP ONE (13:01)
[2020-02-19] MEDS ORDERED: DILAUDID INJ ONE (13:02)
[2020-02-19] MEDS ORDERED: DIPRIVAN VIAL 10 ML ONE (14:01)
--- NOTE | 2020-02-19 14:20 | OR.IMMED ---
Immediate Post-Op Note - Immediate Post-Op Note Pre-Op Diagnosis: PUD, Gastritis Post-Op Diagnosis: localised Gastritis on the lesser curvature ( could be from vomiting ) Procedure: EGD w Bx Surgeon/Senior Support Analyst: Juli Specimens Removed: Bx from antrum , fundus Drains: NONE Complications: none Condition: Stable (to keep over night.)
[2020-02-19] MEDS ORDERED: DILAUDID INJ IVP PRN (14:33)
[2020-02-19] MEDS: D5 1/2 NS 1000 ML 1,000 ML IV SCH (15:03)
[2020-02-19] MEDS: CARAFATE PO SCH ×2 (15:40→19:59)
[2020-02-19] MEDS: DILAUDID INJ IVP PRN ×2 (16:33→20:03)
[2020-02-19] MEDS: ZOFRAN INJ 4 MG VIAL IVP PRN ×2 (16:33→20:13)
[2020-02-19] MEDS ORDERED: APRESOLINE INJ 20 MG VIAL IVP PRN (17:46)
[2020-02-19] MEDS ORDERED: APRESOLINE INJ 20 MG VIAL IVP ONE (17:46)
[2020-02-19] MEDS ORDERED: TOPROL XL PO SCH (18:00)
[2020-02-19] MEDS ORDERED: ROBITUSSIN DM PO PRN (19:30)
[2020-02-19] MEDS: PROTONIX INJ 40 MG VIAL IVP SCH (19:59)
[2020-02-20] MEDS: D5 1/2 NS 1000 ML 1,000 ML IV SCH ×2 (00:26→06:54)
[2020-02-20] MEDS ORDERED: NORCO 5/325 MG TAB PO PRN (01:27)
[2020-02-20] MEDS ORDERED: ZOFRAN TAB 4 MG ONE (01:30)
[2020-02-20] MEDS ORDERED: NORCO 5/325 MG TAB ONE (01:30)
[2020-02-20] MEDS: ZOFRAN TAB 4 MG SL PRN ×3 (01:34→21:20)
[2020-02-20] MEDS ORDERED: MAALOX or MYLANTA ONE (03:28)
[2020-02-20] MEDS: MAALOX or MYLANTA PO PRN ×3 (03:33→13:37)
[2020-02-20] MEDS ORDERED: PHENERGAN INJ 25 MG IM ONE (08:30)
[2020-02-20] MEDS: NORVASC TAB 10 MG PO SCH (08:37)
[2020-02-20] MEDS: PROTONIX INJ 40 MG VIAL IVP SCH ×2 (08:37→08:43)
[2020-02-20] MEDS: NORCO 5/325 MG TAB PO PRN ×2 (08:46→20:56)
--- NOTE | 2020-02-20 10:03 | DR.H&P ---
H&P History & Physical for Day of: H&P Date: 02/20/20 Chief Complaint Chief Complaint: abdominal pain, N/V Allergies Allergies Allergy/AdvReac Type Severity Reaction Status Date / Time azithromycin [From Zithromax] Allergy Verified 02/14/20 12:59 erythromycin base Allergy Verified 02/14/20 12:59 [From E-Mycin] History of Present Illness History of Present Illness: Patient is a 34y/o male inmate who was recently discharged after having a lap cholecystectomy done last week. He presented to the ED with worsening abdominal pain, nausea and vomiting. CTAP was done which showed mild esophagus thickening. Dr. Ellison was consulted and patient had EGD done yesterday which showed mild gastritis and hiatal hernia. Patient was started on protonix BID and Carafate. He continued to have abdominal pain and burning overnight. His BP was also elevated. He was given metoprolol and medicine was consulted for further management. He received one dose of IV hydralazine. Patient lost his IV access and after multiple attempts, RN was not able to get it. He was initially receiving Dilaudid but switched to PO Monroe. Patient states he continues to have epigastric pain and burning. He has nausea, had one episode of vomiting last night. He ate some food last night and tolerated that ok. He has not eaten anything this morning. Plan: start Norvasc for BP control, continue protonix, Carafate, increase Monroe to 10 mg prn, contine Maalox. Advance diet as tolerated. Past Medical History Past Medical History: Hypertension Past Surgical History Surgical History: Appendectomy, Cholecystectomy and Tonsillectomy Family History Family Medical History: Hypertension Social History Does patient currently use any type of tobacco product: Yes Have you used tobacco products in the last 12 months: Yes Type of Tobacco Use: Cigarettes Does any household member use tobacco: No Alcohol Use: None Drug Use: Marijuana Medications Home Medications: azithromycin [From Zithromax] Allergy (Verified 02/14/20 12:59) erythromycin base [From E-Mycin] Allergy (Verified 02/14/20 12:59) Labs Result Diagrams: 02/19/20 09:28 02/19/20 09:28 Labs: Laboratory WBC 9.6 X10^3/uL (3.6-10.0) 02/19/20 09:28 RBC 5.08 X10^6/uL (4.7-6.0) 02/19/20 09: Hgb 15.1 g/dL (13.5-18.0) 02/19/20: Hct 43.0 % (42.0-54.0) 02/19/20: MCV 84.7 fL (80.0-100.0) 02/19/20: MCH 29.6 pg (27.0-34.0) 02/19/20 MCHC 35.0 g/dL (33.0-35.0) 02/19/20: RDW 13.9 % (11.6-16.5) 02/19/20: Plt Count 186 X10^3/uL (150.0-450.0) 02/19/20: MPV 9.1 fL (7.4-11.0) 02/19/20: Neut % (Auto) 79.9 % (42.0-75.0) H 02/19/20: Lymph % (Auto) 13.4 % (21.0-51.0) L 02/19/20: [place] % (Auto) 5.7 % (0.0-13.0) 02/19/20 Eos % (Auto) 0.4 % (0.9-2.9) L 02/19/20: Baso % (Auto) 0.6 % (0.2-1.0) 02/19/20: Neut # (Auto) 7.7 x10^3/uL (2.2-4.8) H 02/19/20: Lymph # (Auto) 1.3 X10^3/uL (1.3-2.9) 02/19/20: [place] # (Auto) 0.5 x10^3/uL (0.3-0.8) 02/19/20: Eos # (Auto) 0.0 x10^3/uL (0.0-0.2) 02/19/20: Baso # (Auto) 0.1 X10^3/uL (0.0-0.1) 03/23/20 09:28 Absolute Nucleated RBC 0.1 /100WBC 02/19/20 09:28 Sodium 136 mmol/L (136-145) 02/19/20 09:28 Corrected Sodium TNP 02/19/20 09:28 Potassium 4.0 mmol/L (3.5-5.1) 02/19/20 09:28 Chloride 100 mmol/L (98-107) 02/19/20 09:28 Carbon Dioxide 28.2 mmol/L (21-32) 02/19/20 09:28 BUN 7 mg/dL (7-18) 02/19/20 09:28 Creatinine 1.10 mg/dL (0.70-1.30) 02/19/20 09:28 Est GFR (MDRD) Af Amer > 60 (>60) 02/19/20 09:28 Est GFR (MDRD) Non-Af > 60 (>60) 02/19/20 09:28 Glucose 100 mg/dL (65-99) H 02/19/20 09:28 Calcium 9.2 mg/dL (8.5-10.1) 02/19/20 09:28 Corrected Calcium TNP 02/19/20 09:28 Total Bilirubin 1.20 mg/dL (0.2-1.0) H 02/19/20 09:28 AST 14 Units/L (15-37) L 02/19/20 09:28 ALT 28 Units/L (12-78) 02/19/20 09:28 Alkaline Phosphatase 53 Units/L (46-116) 02/19/20 09:28 Total Protein 7.6 g/dL (6.4-8.2) 02/19/20 09:28 Albumin 3.7 g/dL (3.4-5.0) 02/19/20 09:28 Globulin 3.9 g/dL (2.5-4.5) 02/19/20 09:28 Albumin/Globulin Ratio 0.9 Ratio (1.1-2.1) L 02/19/20 09:28 Tissue Pathology To follow 02/19/20 14:02 Review of Systems Constitutional: No Symptoms Reported Respiratory: No Symptoms Reported Cardiovascular: No Symptoms Reported Gastrointestinal: Nausea, Vomiting and Abdominal Pain Genitourinary: No Symptoms Reported Musculoskeletal: No Symptoms Reported Skin: No Symptoms Reported Neurological: No Symptoms Reported Physical Exam Vital Signs: Temperature 98.4 F Pulse Rate [Right Brachial] 57 Pulse Rate 102 Respiratory Rate 18 Blood Pressure [Right Arm] 156/111 Blood Pressure 156/104 O2 Sat by Pulse Oximetry 98 Oriented: Normal Respiratory: Clear Throughout Cardiovascular: Normal Auscultation: Bowel Sounds: Normal Tenderness: Diffuse, Epigastric and Moderate Skin: Normal Musculoskeletal: Normal Psychiatric: Normal Mood Description: Calm Affect: Normal Speech Pattern: Clear and Appropriate Assessment/Plan (1) Esophagitis, acute: Status: Acute (2) Intractable vomiting with nausea: Status: Acute (3) Status post laparoscopic cholecystectomy: Status: Acute (4) Accelerated hypertension: Status: Acute Review H&P Reviewed: Yes Patient was examined?: Yes
[2020-02-20] MEDS: CARAFATE PO SCH ×4 (12:08→20:50)
[2020-02-20] MEDS: PROTONIX TAB 40 MG PO SCH ×2 (12:09→20:51)
[2020-02-20] MEDS: LEVSIN/MAALOX/LIDOC VISC PO PRN (17:55)
[2020-02-21] MEDS: NORCO 5/325 MG TAB PO PRN ×2 (02:22→08:30)
[2020-02-21] MEDS: LEVSIN/MAALOX/LIDOC VISC PO PRN ×3 (02:28→12:17)
[2020-02-21 05:06] LABS: BASOPHILS # (AUTO) 0.1 X10^3/uL (0.0-0.1); BASOPHILS % (AUTO) 0.7 % (0.2-1.0); EOSINOPHILS # (AUTO) 0.1 x10^3/uL (0.0-0.2); EOSINOPHILS % (AUTO) 1.5 % (0.9-2.9); HEMATOCRIT 44.7 % (42.0-54.0); HEMOGLOBIN 15.5 g/dL (13.5-18.0); LYMPHOCYTES # (AUTO) 1.7 X10^3/uL (1.3-2.9); LYMPHOCYTES % (AUTO) 20.4 % (21.0-51.0); MEAN CORPUSCULAR HEMOGLOBIN 29.8 pg (27.0-34.0); MEAN CORPUSCULAR HGB CONC 34.6 g/dL (33.0-35.0); MEAN PLATELET VOLUME 8.8 fL (7.4-11.0); MONOCYTES # (AUTO) 0.7 x10^3/uL (0.3-0.8); MONOCYTES % (AUTO) 8.6 % (0.0-13.0); NEUTROPHILS # (AUTO) 5.7 x10^3/uL (2.2-4.8); NEUTROPHILS % (AUTO) 68.8 % (42.0-75.0); PLATELET COUNT 176 X10^3/uL (150.0-450.0); RED BLOOD COUNT 5.19 X10^6/uL (4.7-6.0); RED CELL DISTRIBUTION WIDTH 13.9 % (11.6-16.5); WHITE BLOOD COUNT 8.2 X10^3/uL (3.6-10.0)
[2020-02-21 05:14] LABS: ALANINE AMINOTRANSFERASE 27 Units/L (12-78); ALBUMIN 3.6 g/dL (3.4-5.0); ALKALINE PHOSPHATASE 50 Units/L (46-116); ASPARTATE AMINO TRANSFERASE 18 Units/L (15-37); BLOOD UREA NITROGEN 11 mg/dL (7-18); CALCIUM 8.6 mg/dL (8.5-10.1); CARBON DIOXIDE 27.8 mmol/L (21-32); CHLORIDE 99 mmol/L (98-107); MAGNESIUM 1.9 mg/dL (1.7-2.9); SODIUM 136 mmol/L (136-145); TOTAL PROTEIN 7.4 g/dL (6.4-8.2); eGFR NON BLACK RACES > 60 (>60)
[2020-02-21] MEDS: CARAFATE PO SCH ×2 (06:08→12:17)
[2020-02-21] MEDS: NORVASC TAB 10 MG PO SCH (08:30)
[2020-02-21] MEDS: PROTONIX TAB 40 MG PO SCH (08:30)
[2020-02-21] MEDS: ZOFRAN TAB 4 MG SL PRN ×2 (08:30→13:55)
[2020-02-21] MEDS ORDERED: K-DUR TAB 20 MEQ PO SCH (09:00)
[2020-02-21 12:19] VITALS: BP 94/54
--- NOTE | 2020-02-21 12:52 | W.DIS.FURT ---
Summary of Discharge Discharge Summary of Date Date of Exam: 02/21/20 Admission Date Date of Admission: 02/19/20 Admission Diagnosis Hospital Course: Patient is a 34y/o male inmate who was recently discharged after having a lap cholecystectomy done last week. He presented to the ED with worsening abdominal pain, nausea and vomiting. CTAP was done which showed mild esophagus thickening. Dr. Ellison was consulted and patient had EGD done yesterday which showed mild gastritis and hiatal hernia. Patient was started on protonix BID and Carafate. He continued to have abdominal pain and burning overnight. His BP was also elevated. He was given metoprolol and medicine was consulted for further management. He received one dose of IV hydralazine. He was started on Norvasc and BP was much better controlled. He was given zofran and GI cocktail for epigastric pain. He initially received IV pain medication but then was switched to [place] prn. Patient's symptoms improved and he was able to tolerate his diet. He was discharged on norvasc, protonix BID, carafate TID and maalox. Vital Signs: Vital Signs (72 hours) 02/19/20 04:06 02/19/20 08:42 02/19/20 13:08 Temperature 97.8 F Pulse Rate 102 H Pulse Rate [Right Brachial] Respiratory Rate 22 16 Blood Pressure 156/104 Blood Pressure [Right Arm] 132/76 O2 Sat by Pulse Oximetry 98 02/19/20 14:50 02/19/20 16:00 02/19/20 16:33 Temperature 98.0 F 98.9 F Pulse Rate Pulse Rate [Right Brachial] 82 71 Respiratory Rate 20 20 20 Blood Pressure Blood Pressure [Right Arm] 194/116 171/103 O2 Sat by Pulse Oximetry 98 99 02/19/20 17:03 02/19/20 17:31 02/19/20 18:20 Temperature Pulse Rate Pulse Rate [Right Brachial] Respiratory Rate 20 Blood Pressure Blood Pressure [Right Arm] 168/102 147/91 O2 Sat by Pulse Oximetry 02/19/20 18:24 02/19/20 18:27 02/19/20 20:00 Temperature 98.4 F Pulse Rate Pulse Rate [Right Brachial] 96 H Respiratory Rate 20 Blood Pressure Blood Pressure [Right Arm] 138/76 148/99 191/104 O2 Sat by Pulse Oximetry 100 02/19/20 20:03 02/19/20 20:33 02/19/20 23:45 Temperature 98.6 F Pulse Rate Pulse Rate [Right Brachial] 84 Respiratory Rate 20 20 24 Blood Pressure Blood Pressure [Right Arm] 142/82 O2 Sat by Pulse Oximetry 95 02/20/20 01:33 02/20/20 02:33 02/20/20 04:00 Temperature 98.7 F Pulse Rate Pulse Rate [Right Brachial] 85 Respiratory Rate 20 20 25 H Blood Pressure Blood Pressure [Right Arm] 162/93 O2 Sat by Pulse Oximetry 98 02/20/20 08:00 02/20/20 08:46 02/20/20 09:46 Temperature 98.4 F Pulse Rate Pulse Rate [Right Brachial] 57 L Respiratory Rate 20 18 18 Blood Pressure Blood Pressure [Right Arm] 156/111 O2 Sat by Pulse Oximetry 02/20/20 12:00 02/20/20 15:19 02/20/20 17:55 Temperature 98.5 F 98.1 F Pulse Rate Pulse Rate [Right Brachial] 82 85 Respiratory Rate 20 18 20 Blood Pressure Blood Pressure [Right Arm] 147/87 152/92 O2 Sat by Pulse Oximetry 93 L 97 02/20/20 20:00 02/20/20 20:56 02/20/20 21:56 Temperature 98.7 F Pulse Rate Pulse Rate [Right Brachial] 95 H Respiratory Rate 20 18 18 Blood Pressure Blood Pressure [Right Arm] 171/100 O2 Sat by Pulse Oximetry 96 02/21/20 00:00 02/21/20 02:22 02/21/20 02:28 Temperature 98.9 F Pulse Rate Pulse Rate [Right Brachial] 82 Respiratory Rate 18 20 20 Blood Pressure Blood Pressure [Right Arm] 123/86 O2 Sat by Pulse Oximetry 98 02/21/20 03:22 02/21/20 03:28 02/21/20 04:00 Temperature 98.7 F Pulse Rate Pulse Rate [Right Brachial] 87 Respiratory Rate 20 20 16 Blood Pressure Blood Pressure [Right Arm] 138/98 O2 Sat by Pulse Oximetry 96 02/21/20 08:00 02/21/20 08:30 02/21/20 09:30 Temperature 98.8 F Pulse Rate Pulse Rate [Right Brachial] 83 Respiratory Rate 20 22 20 Blood Pressure Blood Pressure [Right Arm] 122/74 O2 Sat by Pulse Oximetry 100 02/21/20 12:00 02/21/20 12:17 Temperature 98.4 F Pulse Rate Pulse Rate [Right Brachial] 74 Respiratory Rate 20 20 Blood Pressure Blood Pressure [Right Arm] 94/54 O2 Sat by Pulse Oximetry 98 Labs: Laboratory Last Values WBC 8.2 X10^3/uL (3.6-10.0) 02/21/20 04:25 RBC 5.19 X10^6/uL (4.7-6.0) 02/21/20 04:25 Hgb 15.5 g/dL (13.5-18.0) 02/21/20 04:25 Hct 44.7 % (42.0-54.0) 02/21/20 04:25 MCV 86.0 fL (80.0-100.0) 02/21/20 04:25 MCH 29.8 pg (27.0-34.0) 02/21/20 04:25 MCHC 34.6 g/dL (33.0-35.0) 02/21/20 04:25 RDW 13.9 % (11.6-16.5) 02/21/20 04:25 Plt Count 176 X10^3/uL (150.0-450.0) 02/21/20 04:25 MPV 8.8 fL (7.4-11.0) 02/21/20 04:25 Neut % (Auto) 68.8 % (42.0-75.0) 02/21/20 04:25 Lymph % (Auto) 20.4 % (21.0-51.0) L 02/21/20 04:25 [place] % (Auto) 8.6 % (0.0-13.0) 02/21/20 04:25 Eos % (Auto) 1.5 % (0.9-2.9) 02/21/20 04:25 Baso % (Auto) 0.7 % (0.2-1.0) 02/21/20 04:25 Neut # (Auto) 5.7 x10^3/uL (2.2-4.8) H 02/21/20 04:25 Lymph # (Auto) 1.7 X10^3/uL (1.3-2.9) 02/21/20 04:25 [place] # (Auto) 0.7 x10^3/uL (0.3-0.8) 02/21/20 04:25 Eos # (Auto) 0.1 x10^3/uL (0.0-0.2) 02/21/20 04:25 Baso # (Auto) 0.1 X10^3/uL (0.0-0.1) 02/21/20 04:25 Absolute Nucleated RBC 0.1 /100WBC 02/21/20 04:25 Sodium 136 mmol/L (136-145) 02/21/20 04:25 Corrected Sodium TNP 02/21/20 04:25 Potassium 3.3 mmol/L (3.5-5.1) L 02/21/20 04:25 Chloride 99 mmol/L (98-107) 02/21/20 04:25 Carbon Dioxide 27.8 mmol/L (21-32) 02/21/20 04:25 BUN 11 mg/dL (7-18) 02/21/20 04:25 Creatinine 1.20 mg/dL (0.70-1.30) 02/21/20 04:25 Est GFR (MDRD) Af Amer > 60 (>60) 02/21/20 04:25 Est GFR (MDRD) Non-Af > 60 (>60) 02/21/20 04:25 Glucose 98 mg/dL (65-99) 02/21/20 04:25 Calcium 8.6 mg/dL (8.5-10.1) 02/21/20 04:25 Corrected Calcium TNP 02/21/20 04:25 Magnesium 1.9 mg/dL (1.7-2.9) 02/21/20 04:25 Total Bilirubin 0.90 mg/dL (0.2-1.0) 02/21/20 04:25 AST 18 Units/L (15-37) 02/21/20 04:25 ALT 27 Units/L (12-78) 02/21/20 04:25 Alkaline Phosphatase 50 Units/L (46-116) 02/21/20 04:25 Total Protein 7.4 g/dL (6.4-8.2) 02/21/20 04:25 Albumin 3.6 g/dL (3.4-5.0) 02/21/20 04:25 Globulin 3.8 g/dL (2.5-4.5) 02/21/20 04:25 Albumin/Globulin Ratio 0.9 Ratio (1.1-2.1) L 02/21/20 04:25 Tissue Pathology To follow 02/19/20 14:02 Reason For Visit: GASTRITIS,HIATAL HERNIA Discharge Date Discharge Date: 02/21/20 Discharge Diagnosis All Active Problems (Updated 02/20/20 @ 10:35 by Coleen Rollins) Accelerated hypertension (Acute) Status post laparoscopic cholecystectomy (Acute) Abdominal pain (Acute) Abdominal pain (Acute) Esophagitis, acute (Acute) Vomiting (Acute) Intractable vomiting with nausea (Acute) Plan of Treatment: Continue with present treatment and follow up plan. Pt is to keep follow up appointment as instructed and take medications as ordered. Discharge Medications Discharge Medications: azithromycin [From Zithromax] Allergy (Verified 02/14/20 12:59) erythromycin base [From E-Mycin] Allergy (Verified 02/14/20 12:59) New Prescriptions acetaminophen [Tylenol 8 Hour] 650 mg PO Q12H PRN #30 tab 02/21/20 [Rx] amlodipine 10 mg PO DAILY 30 Days #30 tab 02/21/20 [Rx] hyoscyamine sulfate [Hyosyne] 30 ml PO QID PRN 15 Days #900 ml 02/21/20 [Rx] ondansetron HCl 4 mg SUBLINGUAL Q6H PRN 15 Days #30 tab 02/21/20 [Rx] pantoprazole 40 mg PO BID 30 Days #60 tab 02/21/20 [Rx] sucralfate 1 g PO ACHS 30 Days #90 tab 02/21/20 [Rx] Follow up and Referral Follow Up: 2 Weeks Discharge Disposition Discharge Disposition: Back to care home Discharge Condition: Stable
== END 2020-02-21 14:00 ==
LOC: MED/SURG 08:20 → ER 08:20 → MED/SURG 14:47
PROVIDERS: ADMIT Surgery; ATTEND Surgery
DX: R10.13 Epigastric pain; I10 Essential (primary) hypertension; K29.00 Acute gastritis without bleeding; Z90.49 Acquired absence of other specified parts of digestive tract; R11.2 Nausea with vomiting, unspecified; K44.9 Diaphragmatic hernia without obstruction or gangrene
CPT/HCPCS: 36415; 80053; 83735; 85025; 96365; 96367; 96372; 96374; 96375; 99284; A4222; C9113; G0378; J0360; J1170; J2405; J2550; J2704; J2765; J7040; S0119; S0181; S5010